=== PATIENT | male | born 1990 | race Caucasian/White ===

== ENCOUNTER 2017-12-19 19:07 | Emergency (ER) | payer SELFPAY ==
[2017-12-19 19:11] VITALS: BP 143/76; PULSE 90; RESP 16; TEMP 36.6; O2SAT 100
--- NOTE | 2017-12-19 19:24 | ED.GENADUL ---
Disposition Clinical Impression: Nausea Disposition: HOME Condition: Good Instructions: Diet for Stomach Ulcers and Gastritis (ED) Additional Instructions: Your free to go back to work. Please avoid any fatty or spicy foods. If you notice any worsening of your symptoms, or any new symptoms such as vomiting, diarrhea, fever, chills, shortness of breath, chest pain, numbness, weakness, or fainting , please return immediately to the emergency department for reevaluation. Please follow up with your primary care provider as soon as possible for reassessment and reevaluation. As always, it was a pleasure participating in your medical care today. Medical Decision Making - Medical Decision Making This is a pleasant 27-year-old male who presents for clearance for work. He was seen and assessed yesterday in emergency department for nausea, but no vomiting or diarrhea. He had no fevers or any other concerning symptoms. He came in today to be cleared to go back to work formally. He states that he called [facility] but was unable to get a hold of any of the physicians and so came here for assessment. Physical exam demonstrates no abnormalities tenderness signs of dehydration or vital sign abnormality. He is cleared for discharge and return to work. We discussed the importance of a bland diet for the next few days and the patient understands we discussed red flags which to return. I have extensively reviewed the treatment plan and discharge instructions with the patient. I have addressed all patient concerns at this time. The patient was made aware of what symptoms to monitor for that would warrant a return to the emergency department. Discussed the plan with the patient, they demonstrate verbal understanding and agreement with our assessment and plan at this time. History of Present Illness - General Chief complaint: Recheck Stated complaint: UNKNOWN Time Seen by Provider: 12/19/17 19:23 - History of Present Illness Initial comments: This is a 27-year-old male with no past medical history who presents today for evaluation of nausea. The patient was seen and assessed at the [facility] emergency department yesterday for symptoms of nausea, with no vomiting or diarrhea. He is eventually sent home, he went to work today and did very well, he ate food and tolerated this well with no vomiting or diarrhea. 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 Currently he has no nausea, he has been able to tolerate food well, and he has no complaints. He denies fever, chills, chest pain, shortness of breath, vomiting, rash, vision change, hematochezia melena or acholic stool. She denies any previous surgeries. He does not take any medications. He denies any IV illicit drug use. He denies any pertinent family history. - Related Data Unknown [No Known Home Meds] 08/14/16 Allergies Allergy/AdvReac Type Severity Reaction Status Date / Time No Known Allergies Allergy Unverified 08/14/16 18:33 Review of Systems Other: 10 point review of systems was performed, pertinent positives and negatives are noted in the history of present illness. Past Medical History - Past Medical History Medical history: no medical history General Exam - Other Other exam information: 1.Const: Well-nourished, Well-developed, appearing stated age 2.Eyes: PERRL, no conjunctival injection, and symmetrical lids. 3.ENT: Atraumatic external nose and ears. Moist MM. Neck: Symmetric, trachea midline, No thyromegaly. 4.CVS: +S1/S2, No murmurs or gallops. Peripheral pulses 2+ and equal in all extremities. Brisk capillary refill in all extremities. 5.RESP: Unlabored respiratory effort. Clear to auscultation bilaterally. No wheezes rales or rhonchi 6.GI: Soft, Nontender/Nondistended, No hepatosplenomegaly. No guarding or rebound. 7.MSK: Normocephalic/Atraumatic, Extremities w/o deformity or ttp No cyanosis or clubbing, Normal movement of all extremities 8.Skin: Warm, Dry. No rashes or lesions. 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 Sensation grossly intact, no focal neurologic deficits. 10.Psych: (AAO) x3. Appropriate mood and affect Course Vital Signs - 24 hr 12/19/17 19:11 Temperature 36.6 C Pulse 90 Respiratory 16 Rate Blood Pressure 143/76 Pulse Oximetry 100
== END 2017-12-19 19:33 | disposition home or self-care (01) ==
PROVIDERS: Emergency Provider Student in an Organized Health Care Education/Training Program
DX: R11.0 Nausea (principal)
CPT/HCPCS: 99281